=== PATIENT | female | born 1960 | race Two or more races ===

== ENCOUNTER 2022-04-03 16:22 | Inpatient (IN) | payer MEDICAID ==
[~2022-04-03] VITALS: Ht 157.5 cm; Wt 62.0 kg
[2022-04-03 16:57] LABS: Basophils # (auto) 0.1 10 ^3/uL (0-0.2); Eosinophils # (auto) 0 10 ^3/uL (0-0.8); Eosinophils % (auto) 0.6 % (0.0-7.0); Hematocrit 47.7 % (36.0-46.0); Hemoglobin 15.7 g/dL (12.2-16.2); Lymphocytes # (auto) 2.6 10 ^3/uL (0.4-5.4); Mean Corpuscular Hgb Conc. 32.9 g/dL (32.0-36.0); Monocytes # (auto) 0.5 10 ^3/uL (0-1.3); Monocytes % (auto) 6.4 % (0.0-12.0); Neutrophils # (auto) 4.5 10 ^3/uL (1.6-8.6); Nucleated Red Blood Cells % 0.1 %; Red Blood Cells 5.07 10^6/uL (4.0-5.20); Red Cell Distribution Width 13.7 % (11.8-14.3); White Blood Cell 7.8 10^3/uL (4.4-10.8)
[2022-04-03] MEDS ORDERED: NITROGLYCERIN 0.4 MG SL TAB SL ONE (17:00)
[2022-04-03 17:12] LABS: INR 0.94 (0.9-1.15); Partial Thromboplastin Time 29.2 sec (24.6-33.4)
[2022-04-03 17:19] LABS: Albumin 4.2 g/dL (3.4-5.0); BUN/Creatinine Ratio 16.3; Calcium 9.1 mg/dL (8.5-10.1); Potassium 3.5 mmol/L (3.5-5.1)
[2022-04-03 17:22] LABS: Bilirubin, Total 0.2 mg/dL (0.2-1.0); Total Protein 7.9 g/dL (6.4-8.2)
[2022-04-03 18:15] LABS: Urine Bacteria NONE SEEN /hpf (None Seen); Urine Blood Negative /uL (Negative); Urine Specific Gravity 1.005 (1.001-1.035); Urine WBC 2 /hpf (0 - 5)
[2022-04-03] MEDS ORDERED: ONDANSETRON HCL 4 MG/2 ML VIAL IV PRN (19:30)
[2022-04-03] MEDS ORDERED: MORPHINE SULFATE INJ 2 MG/ml SYRG IV PRN (19:30)
[2022-04-03] MEDS ORDERED: NITROGLYCERIN 0.4 MG SL TAB SL PRN (19:30)
[2022-04-03] MEDS ORDERED: hydrALAZINE HCL 20 MG/ML VL IV PRN ×2 (19:30→20:00)
[2022-04-03 21:26] LABS: Cholesterol 203 mg/dL (< 200)
[2022-04-03 21:27] LABS: HDL Cholesterol 61 mg/dL (40-59); LDL Cholesterol 118 mg/dL (< 100); Triglycerides 158 mg/dL (< 150)
[2022-04-04] MEDS: SODIUM CHLORIDE 0.9% 1,000 ML IV SCH ×2 (04:04→09:42)
[2022-04-04] MEDS: METOPROLOL TARTRATE 25 MG TAB PO SCH ×2 (04:07→09:38)
[2022-04-04 07:02] LABS: Basophils # (auto) 0.1 10 ^3/uL (0-0.2); Basophils % (auto) 0.9 % (0.0-2.0); Eosinophils # (auto) 0.1 10 ^3/uL (0-0.8); Eosinophils % (auto) 0.8 % (0.0-7.0); Hematocrit 43.2 % (36.0-46.0); Hemoglobin 14.6 g/dL (12.2-16.2); Lymphocytes % (auto) 33.2 % (10.0-50.0); Mean Corpuscular Hemoglobin 32.1 pg (28.0-32.0); Mean Corpuscular Hgb Conc. 33.9 g/dL (32.0-36.0); Mean Corpuscular Volume 94.7 fL (80.0-100.0); Monocytes # (auto) 0.5 10 ^3/uL (0-1.3); Monocytes % (auto) 7.8 % (0.0-12.0); Neutrophils # (auto) 3.4 10 ^3/uL (1.6-8.6); Neutrophils % (auto) 57.3 % (37.0-80.0); Red Blood Cells 4.56 10^6/uL (4.0-5.20); Red Cell Distribution Width 13.8 % (11.8-14.3)
[2022-04-04 07:18] LABS: Potassium 3.5 mmol/L (3.5-5.1)
[2022-04-04 07:26] LABS: Albumin 3.7 g/dL (3.4-5.0); BUN/Creatinine Ratio 18.7; Bilirubin, Total 0.6 mg/dL (0.2-1.0); Calcium 9.1 mg/dL (8.5-10.1); Total Protein 7.4 g/dL (6.4-8.2)
[2022-04-04] MEDS ORDERED: ENOXAPARIN SOD 40 MG/0.4 ML SYRINGE SC SCH (10:00)
[2022-04-04] MEDS ORDERED: ADENOSINE 52 MG in GIVE UN-DILUTED 0 ML IV STA (10:33)
[2022-04-04 10:51] VITALS: BP 139/91
[2022-04-04 16:17] VITALS: BP 140/78
[2022-04-04] MEDS ORDERED: ATORVASTATIN 20 MG TAB PO SCH (22:00)
== END 2022-04-04 16:48 | disposition home or self-care (01) | DRG 203 ==
LOC: ER 16:25 → TELE 19:26 → UNDOADMIN 19:26
PROVIDERS: ADMIT Nurse Practitioner Family; ATTEND Nurse Practitioner Family
DX: R07.89 Other chest pain (principal); E78.5 Hyperlipidemia, unspecified; I16.1 Hypertensive emergency; Z20.822 Contact with and (suspected) exposure to COVID-19; R04.0 Epistaxis; Z90.11 Acquired absence of right breast and nipple; Z85.3 Personal history of malignant neoplasm of breast
CPT/HCPCS: 36415; 78452; 80053; 80061; 81001; 83036; 84443; 84484; 85025; 85610; 85730; 87426; 93005; 93017; 93306; 96361; 96365; 96372; 96375; G0378; J0153